=== PATIENT | male | born 1970 | race Caucasian/White ===

== ENCOUNTER 2021-01-21 11:12 | Outpatient (CLI) | payer BC ==
[2021-01-22 21:05] LABS: SARS-CoV-2 PCR by NAA Not Detected (NotDetected)
== END 2021-01-21 11:13 | disposition home or self-care (01) ==
LOC: CSHLAB 11:12
PROVIDERS: ATTEND Internal Medicine Gastroenterology
DX: Z01.812 Encounter for preprocedural laboratory examination (principal); Z20.822 Contact with and (suspected) exposure to COVID-19; Z12.11 Encounter for screening for malignant neoplasm of colon
CPT/HCPCS: U0003; U0005

== ENCOUNTER → 2021-01-26 | Day surgery (SDC) | payer BC ==
[2021-01-21 14:21] VITALS: BMI 29.6
[~2021-01-26] MED LIST: Lidocaine 1% MPF 2 ML VIAL ONE; Lidocaine 2% MPF 10 ML AMP (For Epidural Use) ONE; Metoprolol Tartrate 5 MG/5 ML VIAL ONE; PROPOFOL 20 ML ONE
== END ==
LOC: CSHSDC 10:01
PROVIDERS: ATTEND Internal Medicine Gastroenterology
PROC: 0DBN8ZZ Excision of Sigmoid Colon, Via Natural or Artificial Opening Endoscopic (ICD-10-PCS; principal; 2021-01-26)
DX: Z12.11 Encounter for screening for malignant neoplasm of colon (principal); K63.5 Polyp of colon; K64.9 Unspecified hemorrhoids; I10 Essential (primary) hypertension; E11.9 Type 2 diabetes mellitus without complications; E78.5 Hyperlipidemia, unspecified
CPT/HCPCS: 88305; J2704